=== PATIENT | female | born 1985 | race Two or more races ===

== ENCOUNTER 2017-05-18 19:16 | Inpatient (IN) | payer OTHER ==
[~2017-05-18] VITALS: Ht 167.6 cm; Wt 93.0 kg
[2017-05-21] MEDS ORDERED: LACTATED RINGERS 1,000 ML IV SCH (08:15)
[2017-05-21 08:24] VITALS: BP 115/67
[2017-05-21] MEDS ORDERED: INFLUENZA VIRUS VACCINE QUAD 0.5 ML SYR IMVAC SCH (08:25)
[2017-05-21 08:43] LABS: BASOPHILS # (AUTO) 0.2 K/uL (0.00-0.22); BASOPHILS % (AUTO) 1.8 % (0.0-2.0); EOSINOPHILS # (AUTO) 0.2 K/uL (0-0.4); EOSINOPHILS % (AUTO) 1.8 % (0.0-4.0); HEMATOCRIT 38.6 % (36-48); HEMOGLOBIN 12.6 g/dL (12.0-16.0); LYMPHOCYTES # (AUTO) 1.9 K/uL (2.5-16.5); LYMPHOCYTES % (AUTO) 22.1 % (20.5-51.1); MEAN CORPUSCULAR HEMOGLOBIN 26 pg (27-31); MEAN CORPUSCULAR HGB CONC 33 g/dL (33-37); MEAN CORPUSCULAR VOLUME 79 fL (80-94); MONOCYTES # (AUTO) 0.6 K/uL (0.8-1.0); MONOCYTES % (AUTO) 6.9 % (1.7-9.3); NEUTROPHILS # (AUTO) 5.8 K/uL (1.8-7.7); NEUTROPHILS % (AUTO) 67.4 % (42.2-75.2); PLATELET COUNT (AUTO) 223 K/uL (140-450); WHITE BLOOD COUNT (AUTO) 8.7 K/uL (4.8-10.8)
[2017-05-21 09:04] LABS: ALBUMIN 2.5 g/dL (3.4-5.0); ANION GAP 15.4 (8-16); CARBON DIOXIDE 22.3 mmol/L (21-32); CREATININE 0.7 mg/dL (0.6-1.3); POTASSIUM 3.7 mmol/L (3.5-5.1); TOTAL BILIRUBIN 0.5 mg/dL (0.0-1.0)
[2017-05-21 09:20] LABS: APPEARANCE,URINE SL CLOUDY (CLEAR); BILIRUBIN,URINE NEGATIVE (NEGATIVE); BLOOD, URINE NEGATIVE (NEGATIVE); COLOR,URINE YELLOW (YELLOW); LEUKOCYTE ESTERASE ,URINE NEGATIVE (NEGATIVE); NITRITE, URINE NEGATIVE (NEGATIVE); PH,URINE 5.5 (5.0-9.0); UGLUCOSE NEGATIVE (NEGATIVE)
[2017-05-21] MEDS ORDERED: CITRIC ACID/SODIUM CITRATE 30 ML UDC PO SCH (09:50)
--- NOTE | 2017-05-21 10:17 | NUR ---
PATIENT HAS BEEN SCREENED AND CATEGORIZED LOW NUTRITION RISK. PATIENT WILL BE SEEN WITHIN 7 DAYS OF ADMISSION. 05/27/[address]
[2017-05-21] MEDS ORDERED: MORPHINE PRES FREE 10 MG/10 ML AMP IV ONE (10:19)
[2017-05-21] MEDS ORDERED: KETOROLAC 30 MG/ML VIAL IVP ONE (10:42)
[2017-05-21] MEDS ORDERED: ONDANSETRON 4 MG/2 ML VIAL IVP ONE (10:42)
[2017-05-21] MEDS ORDERED: OXYTOCIN 10 UNITS/ML VIAL IM ONE (10:42)
[2017-05-21] MEDS ORDERED: BUPIVACAINE-MPF 0.75% 10 ML VIAL INJ ONE (10:42)
[2017-05-21] MEDS ORDERED: OXYTOCIN 20 UNITS in LACTATED RINGERS 1,000 ML IV SCH ×2 (11:01→13:25)
[2017-05-21] MEDS ORDERED: KETOROLAC 30 MG/ML VIAL IVP PRN ×2 (11:05→13:25)
[2017-05-21] MEDS ORDERED: diphenhydrAMINE 50 MG/ML VIAL IVP PRN (11:05)
[2017-05-21] MEDS ORDERED: NALOXONE 0.4 MG/ML VIAL IVP PRN ×2 (11:05)
[2017-05-21] MEDS ORDERED: ONDANSETRON 4 MG/2 ML VIAL IVP PRN (11:05)
[2017-05-21] MEDS ORDERED: MEASLES, MUMPS, AND RUBELLA 1 VIAL SQVAC PRN (13:25)
[2017-05-22] MEDS ORDERED: HYDROmorphone 1 MG/ML AMP IVP PRN (05:00)
[2017-05-22] MEDS ORDERED: OXYTOCIN 20 UNITS/LR PREMIX 1,000 ML IV ONE (05:43)
[2017-05-22 08:35] LABS: BASOPHILS # (AUTO) 0.1 K/uL (0.00-0.22); EOSINOPHILS # (AUTO) 0.1 K/uL (0-0.4); EOSINOPHILS % (AUTO) 1.1 % (0.0-4.0); HEMATOCRIT 35.9 % (36-48); HEMOGLOBIN 11.5 g/dL (12.0-16.0); LYMPHOCYTES # (AUTO) 1.3 K/uL (2.5-16.5); LYMPHOCYTES % (AUTO) 9.7 % (20.5-51.1); MEAN CORPUSCULAR HEMOGLOBIN 26 pg (27-31); MEAN CORPUSCULAR HGB CONC 32 g/dL (33-37); MEAN CORPUSCULAR VOLUME 80 fL (80-94); MONOCYTES # (AUTO) 0.9 K/uL (0.8-1.0); MONOCYTES % (AUTO) 6.8 % (1.7-9.3); NEUTROPHILS # (AUTO) 10.7 K/uL (1.8-7.7); NEUTROPHILS % (AUTO) 81.4 % (42.2-75.2); PLATELET COUNT (AUTO) 222 K/uL (140-450); RED BLOOD CELL COUNT(AUTO) 4.49 MIL/uL (4.20-5.40); RED CELL DISTRIBUTION WIDTH 14.7 % (11.6-13.7); WHITE BLOOD COUNT (AUTO) 13.1 K/uL (4.8-10.8)
[2017-05-22] MEDS ORDERED: ACETAMINOPHEN 325 MG TAB PO PRN (22:00)
[2017-05-23] MEDS ORDERED: SIMETHICONE 80 MG TAB.CHEW PO PRN (08:00)
[2017-05-23] MEDS ORDERED: DOCUSATE SODIUM 100 MG GELCAP PO PRN (08:00)
[2017-05-23] MEDS ORDERED: SODIUM PHOSPHATE 118 ML ENEM RC PRN (08:00)
[2017-05-23] MEDS ORDERED: BISACODYL 5 MG TABEC PO PRN (08:25)
[2017-05-23] MEDS ORDERED: oxyCODONE/APAP 5/325 MG 1 TAB TAB PO PRN (08:25)
[2017-05-23] MEDS: IBUPROFEN 600 MG TAB PO PRN ×2 (08:53→20:31)
[2017-05-24] MEDS: IBUPROFEN 600 MG TAB PO PRN (15:28)
[2017-05-25] MEDS: IBUPROFEN 600 MG TAB PO PRN (03:31)
== END 2017-05-25 15:30 | disposition home or self-care (01) | DRG 540 ==
LOC: MLD 05-21 07:25 → MFCC 05-21 10:50
PROVIDERS: ADMIT Obstetrics & Gynecology; ATTEND Obstetrics & Gynecology
PROC: 10D00Z1 Extraction of Products of Conception, Low, Open Approach (ICD-10-PCS; principal; 2017-05-21 10:30)
PROC: 30233S1 Transfusion of Nonautologous Globulin into Peripheral Vein, Percutaneous Approach (ICD-10-PCS; 2017-05-22)
PROC: 3E0234Z Introduction of Serum, Toxoid and Vaccine into Muscle, Percutaneous Approach (ICD-10-PCS; 2017-05-23)
PROC: 3E0234Z Introduction of Serum, Toxoid and Vaccine into Muscle, Percutaneous Approach (ICD-10-PCS; 2017-05-23)
DX: O34.211 Maternal care for low transverse scar from previous cesarean delivery (principal); J45.909 Unspecified asthma, uncomplicated; O99.824 Streptococcus B carrier state complicating childbirth; O99.52 Diseases of the respiratory system complicating childbirth; Z23 Encounter for immunization; Z37.0 Single live birth; Z3A.39 39 weeks gestation of pregnancy
CPT/HCPCS: 36415; 51702; 80053; 81003; 85025; 86592; 86850; 86886; 86900; 86901; 87086; 90658; 90715; J0690; J1885; J2270; J2405; J2590; J2790; J3490; J7060; J7120

== ENCOUNTER 2018-07-21 10:03 | Observation (INO) | payer MEDICAID ==
[~2018-07-21] VITALS: Ht 167.6 cm; Wt 96.2 kg
[2018-07-21] MEDS ORDERED: FISH10005 PO (10:22)
[2018-07-21] MEDS ORDERED: FERR325E14 PO (10:22)
[2018-07-21] MEDS ORDERED: PREN-380 PO (10:22)
== END 2018-07-21 15:10 | disposition home or self-care (01) ==
LOC: MLD 10:03
PROVIDERS: ADMIT Obstetrics & Gynecology; ATTEND Obstetrics & Gynecology
DX: O26.893 Other specified pregnancy related conditions, third trimester (principal); R10.30 Lower abdominal pain, unspecified; Z3A.38 38 weeks gestation of pregnancy
CPT/HCPCS: 59025; 76805; 81000; G0378; Q0092

== ENCOUNTER 2018-07-26 07:28 | Inpatient (IN) | payer MEDICAID ==
[~2018-07-26] VITALS: Ht 167.6 cm; Wt 96.6 kg
[~2018-07-26 07:28] MED LIST: FERR325E14 PO; FISH10005 PO; PREN-380 PO
[2018-07-26] MEDS ORDERED: CITRIC ACID/SODIUM CITRATE 30 ML UDC PO SCH (07:45)
[2018-07-26] MEDS ORDERED: AMPICILLIN 2,000 MG in NACL 0.9% 100 ML IV SCH (07:45)
[2018-07-26] MEDS: LACTATED RINGERS 1,000 ML IV SCH ×2 (08:09→10:26)
--- NOTE | 2018-07-26 08:20 | NUR ---
PATIENT HAS BEEN SCREENED AND CATEGORIZED LOW NUTRITION RISK. PATIENT WILL BE SEEN WITHIN 7 DAYS OF ADMISSION. 08/01/[address]
[2018-07-26] MEDS ORDERED: AMPICILLIN 2,000 MG VIAL ONE (08:31)
[2018-07-26 08:35] VITALS: BP 120/71
[2018-07-26 09:27] LABS: BASOPHILS % (AUTO) 0.4 % (0.0-2.0); EOSINOPHILS # (AUTO) 0.2 K/uL (0-0.4); EOSINOPHILS % (AUTO) 2.1 % (0.0-4.0); HEMATOCRIT 39.1 % (36-48); HEMOGLOBIN 12.7 g/dL (12.0-16.0); LYMPHOCYTES # (AUTO) 2.2 K/uL (2.5-16.5); LYMPHOCYTES % (AUTO) 25.5 % (20.5-51.1); MEAN CORPUSCULAR HEMOGLOBIN 25 pg (27-31); MEAN CORPUSCULAR HGB CONC 33 g/dL (33-37); MEAN CORPUSCULAR VOLUME 76.7 fL (80-94); MONOCYTES # (AUTO) 0.6 K/uL (0.8-1.0); MONOCYTES % (AUTO) 7.3 % (1.7-9.3); NEUTROPHILS # (AUTO) 5.7 K/uL (1.8-7.7); NEUTROPHILS % (AUTO) 64.7 % (42.2-75.2); PLATELET COUNT (AUTO) 214 K/uL (140-450); RED CELL DISTRIBUTION WIDTH 15.3 % (11.6-13.7); WHITE BLOOD COUNT (AUTO) 8.8 K/uL (4.8-10.8)
[2018-07-26 10:01] LABS: APPEARANCE,URINE CLEAR (CLEAR); BILIRUBIN,URINE NEGATIVE (NEGATIVE); BLOOD, URINE NEGATIVE (NEGATIVE); COLOR,URINE YELLOW (YELLOW); LEUKOCYTE ESTERASE ,URINE NEGATIVE (NEGATIVE); NITRITE, URINE NEGATIVE (NEGATIVE); UGLUCOSE NEGATIVE (NEGATIVE)
[2018-07-26] MEDS ORDERED: CITRIC ACID/SODIUM CITRATE 30 ML UDC ONE (10:08)
[2018-07-26] MEDS ORDERED: ePHEDrine 50 MG/ML VIAL IV ONE (10:34)
[2018-07-26] MEDS ORDERED: fentaNYL 0.05 MG/ML VIAL ONE (10:47)
[2018-07-26] MEDS ORDERED: MORPHINE PRES FREE 2 MG/2 ML 2 mL UD SYRINGE ONE (10:47)
[2018-07-26] MEDS ORDERED: BUPIVACAINE/DEXT 0.75% SPINAL 2 ML AMP INJ ONE (10:47)
[2018-07-26] MEDS ORDERED: diphenhydrAMINE 50 MG/ML VIAL IVP PRN (11:05)
[2018-07-26] MEDS ORDERED: NALOXONE 0.4 MG/ML VIAL IVP PRN ×2 (11:05)
[2018-07-26] MEDS ORDERED: NALBUPHINE 10 MG/ML AMP IVP PRN (11:05)
[2018-07-26] MEDS ORDERED: ONDANSETRON 4 MG/2 ML VIAL IVP PRN ×2 (11:05)
[2018-07-26] MEDS ORDERED: KETOROLAC 60 MG/2 ML VIAL IM PRN (11:05)
[2018-07-26] MEDS ORDERED: ONDANSETRON 4 MG/2 ML VIAL ONE (13:49)
[2018-07-26] MEDS ORDERED: OXYTOCIN 20 UNITS/LR PREMIX 1,000 ML IV ONE ×2 (13:49→22:23)
[2018-07-26] MEDS ORDERED: diphenhydrAMINE 50 MG/ML VIAL ONE (13:53)
[2018-07-26] MEDS ORDERED: MEASLES, MUMPS, AND RUBELLA 1 VIAL SQVAC PRN (13:55)
[2018-07-26] MEDS ORDERED: HYDROmorphone 1 MG/ML AMP IVP PRN (13:55)
[2018-07-26] MEDS: OXYTOCIN 20 UNITS in LACTATED RINGERS 1,000 ML IV SCH (22:21)
[2018-07-27] MEDS: OXYTOCIN 20 UNITS in LACTATED RINGERS 1,000 ML IV SCH (06:56)
[2018-07-27] MEDS ORDERED: OXYTOCIN 20 UNITS/LR PREMIX 1,000 ML IV ONE (06:58)
[2018-07-27 08:26] LABS: BASOPHILS % (AUTO) 0.3 % (0.0-2.0); EOSINOPHILS # (AUTO) 0.2 K/uL (0-0.4); EOSINOPHILS % (AUTO) 1.7 % (0.0-4.0); HEMATOCRIT 35.2 % (36-48); HEMOGLOBIN 11.4 g/dL (12.0-16.0); LYMPHOCYTES # (AUTO) 1.2 K/uL (2.5-16.5); LYMPHOCYTES % (AUTO) 9.7 % (20.5-51.1); MEAN CORPUSCULAR HEMOGLOBIN 25 pg (27-31); MEAN CORPUSCULAR HGB CONC 32 g/dL (33-37); MEAN CORPUSCULAR VOLUME 77.2 fL (80-94); MONOCYTES # (AUTO) 0.9 K/uL (0.8-1.0); MONOCYTES % (AUTO) 7.2 % (1.7-9.3); NEUTROPHILS % (AUTO) 81.1 % (42.2-75.2); PLATELET COUNT (AUTO) 187 K/uL (140-450); RED BLOOD CELL COUNT(AUTO) 4.56 MIL/uL (4.20-5.40); RED CELL DISTRIBUTION WIDTH 15.3 % (11.6-13.7); WHITE BLOOD COUNT (AUTO) 12.4 K/uL (4.8-10.8)
[2018-07-27] MEDS: KETOROLAC 30 MG/ML VIAL IVP PRN ×3 (08:35→21:51)
[2018-07-28] MEDS: KETOROLAC 30 MG/ML VIAL IVP PRN (06:10)
[2018-07-28] MEDS ORDERED: SODIUM PHOSPHATE 118 ML ENEM RC PRN (08:00)
[2018-07-28] MEDS ORDERED: BISACODYL 5 MG TABEC PO PRN (08:00)
[2018-07-28] MEDS: SIMETHICONE 80 MG TAB.CHEW PO SCH ×3 (08:46→18:06)
[2018-07-28] MEDS: DOCUSATE SODIUM 100 MG GELCAP PO SCH (08:47)
[2018-07-28] MEDS ORDERED: INFLUENZA VIRUS VACCINE QUAD 0.5 ML SYR IMVAC PRN (21:00)
[2018-07-28] MEDS: IBUPROFEN 600 MG TAB PO PRN (21:12)
[2018-07-28] MEDS: ACETAMINOPHEN 325 MG TAB PO PRN (23:32)
[2018-07-29] MEDS ORDERED: oxyCODONE/APAP 5/325 MG 1 TAB TAB PO PRN (00:05)
[2018-07-29] MEDS: IBUPROFEN 600 MG TAB PO PRN ×2 (05:09→21:41)
[2018-07-29] MEDS: SIMETHICONE 80 MG TAB.CHEW PO SCH ×2 (08:18→13:40)
[2018-07-29] MEDS: DOCUSATE SODIUM 100 MG GELCAP PO SCH (08:19)
[2018-07-30] MEDS: ACETAMINOPHEN 325 MG TAB PO PRN (01:09)
[2018-07-30] MEDS: IBUPROFEN 600 MG TAB PO PRN (14:54)
== END 2018-07-30 15:20 | disposition home or self-care (01) | DRG 540 ==
LOC: MLD 07:28 → MFCC 11:38
PROVIDERS: ADMIT Obstetrics & Gynecology; ATTEND Obstetrics & Gynecology
PROC: 3E0234Z Introduction of Serum, Toxoid and Vaccine into Muscle, Percutaneous Approach (ICD-10-PCS; 2018-07-26)
PROC: 3E02340 Introduction of Influenza Vaccine into Muscle, Percutaneous Approach (ICD-10-PCS; 2018-07-26)
PROC: 30233S1 Transfusion of Nonautologous Globulin into Peripheral Vein, Percutaneous Approach (ICD-10-PCS; 2018-07-26)
PROC: 10D00Z1 Extraction of Products of Conception, Low, Open Approach (ICD-10-PCS; principal; 2018-07-26 10:30)
DX: O34.211 Maternal care for low transverse scar from previous cesarean delivery (principal); O32.1XX0 Maternal care for breech presentation, not applicable or unspecified; O99.824 Streptococcus B carrier state complicating childbirth; Z23 Encounter for immunization; Z37.0 Single live birth; Z3A.39 39 weeks gestation of pregnancy
CPT/HCPCS: 36415; 81003; 85025; 86592; 86850; 86886; 86900; 86901; 87081; 87086; 90658; 90715; J0290; J0690; J1200; J1885; J2270; J2405; J2590; J2790; J3010; J3490; J7060; J7120